=== PATIENT | female | born 1980 | race African-American/Black ===

== ENCOUNTER 2018-05-23 08:43 | Emergency (ER) | payer OTHER, SELFPAY ==
[~2018-05-23] VITALS: Ht 147.3 cm; Wt 63.6 kg
[~2018-05-23 08:43] MED LIST: NOCURR
[2018-05-23 09:46] LABS: APPEARANCE,URINE CLOUDY (CLEAR); BILIRUBIN,URINE NEGATIVE (NEGATIVE); GLUCOSE, URINE (UA) 100 mg/dL (NEGATIVE); KETONES,URINE NEGATIVE (NEGATIVE); LEUKOCYTE ESTERASE ,URINE TRACE (NEGATIVE); NITRATE,URINE NEGATIVE (NEGATIVE); OCCULT BLOOD,URINE NEGATIVE (NEGATIVE); PH,URINE 5.5 (5.0-8.0); PROTEIN,URINE SEE CONFIRM (NEGATIVE); UROBILINOGEN,URINE 0.2 mg/dL (<=1.0)
[2018-05-23 09:50] LABS: AMPHET/METH SCREEN,URINE NEGATIVE (NEGATIVE); BARBITURATE SCREEN, URINE NEGATIVE (NEGATIVE); BENZODIAZEPINES SCREEN,URINE NEGATIVE (NEGATIVE); CANNABINOID SCREEN,URINE NEGATIVE (NEGATIVE); COCAINE SCREEN,URINE NEGATIVE (NEGATIVE); METHADONE SCREEN, URINE NEGATIVE (NEGATIVE); OPIATE SCREEN,URINE NEGATIVE (NEGATIVE)
[2018-05-23 09:51] LABS: PHENCYCLIDINE SCREEN,URINE NEGATIVE (NEGATIVE)
[2018-05-23 10:07] LABS: BACTERIA,URINE Moderate /HPF (None Seen); RBC,URINE None Seen /HPF (0-2); SQUAMOUS EPITHELIAL CELL,UR Many /LPF (None Seen); SULFOSALICYLIC ACID,URINE 1+ (Negative); WBC,URINE 0-2 /HPF (0-5)
[2018-05-23 10:14] LABS: BASOPHILS % (AUTO) 0.8 % (0.0-2.0); EOSINOPHILS % (AUTO) 9.2 % (1.0-6.0); HEMATOCRIT 36.9 % (36-46); HEMOGLOBIN 11.6 g/dL (12.0-16.0); LYMPHOCYTES # (AUTO) 2.1 K/uL (1.0-4.8); LYMPHOCYTES % (AUTO) 34.4 % (22.0-44.0); MEAN CORPUSCULAR HEMOGLOBIN 27.3 pg (26.0-34.0); MEAN CORPUSCULAR HGB CONC 31.4 G/dL (31.0-37.0); MEAN CORPUSCULAR VOLUME 87 fL (80-100); MONOCYTES # (AUTO) 0.4 K/uL (0.1-1.0); MONOCYTES % (AUTO) 7.1 % (2.0-9.0); NEUTROPHILS % (AUTO) 48.5 % (40.0-70.0); PLATELET COUNT (AUTO) 351 K/uL (150-450); RED BLOOD CELL COUNT(AUTO) 4.25 MIL/uL (4.00-5.20); RED CELL DISTRIBUTION WIDTH 16.3 % (11.5-14.5)
[2018-05-23] MEDS ORDERED: PROP20TA7 PO (10:19)
[2018-05-23] MEDS ORDERED: CLON1PAT4 PO (10:19)
[2018-05-23 10:23] LABS: ANION GAP 10 mmol/L (8-16); CARBON DIOXIDE 21 mmol/L (22-29); CHLORIDE 104 mmol/L (98-107); CREATININE 0.73 mg/dL (0.60-1.30); GLOMERULAR FILTR. RATE CALC > 60 mL/min (>60); GLUCOSE,RANDOM 129 mg/dL (70-110); POTASSIUM 3.9 mmol/L (3.5-5.1); SODIUM SERUM 135 mmol/L (136-145); UREA NITROGEN, BLOOD 7 mg/dL (7-18)
[2018-05-23 10:34] LABS: ALANINE AMINOTRANSFERASE 18 U/L (12-78); ALBUMIN 3.7 g/dL (3.4-5.0); ALKALINE PHOSPHATASE 93 U/L (46-116); ASPARTATE AMINOTRANSFERASE 20 U/L (15-37); BILIRUBIN,TOTAL 0.3 mg/dL (0.1-1.0); HCG,QUANTITATIVE < 1 mIU/mL (0-6); LIPASE 222 U/L (73-393)
[2018-05-23 14:23] VITALS: BP 122/69
== END 2018-05-23 14:28 | disposition home or self-care (01) ==
LOC: EMS 08:44
DX: R55 Syncope and collapse (principal); R53.1 Weakness; I10 Essential (primary) hypertension; E11.9 Type 2 diabetes mellitus without complications; Z88.5 Allergy status to narcotic agent; Z88.6 Allergy status to analgesic agent; Z79.899 Other long term (current) drug therapy
CPT/HCPCS: 70450; 87086; 93005

== ENCOUNTER 2018-09-20 02:12 | Emergency (ER) | payer OTHER ==
[~2018-09-20] VITALS: Ht 147.3 cm; Wt 63.6 kg
[~2018-09-20 02:12] MED LIST changes: +CLON1PAT4 PO; +PROP20TA7 PO
[2018-09-20] MEDS ORDERED: LAMO25 PO (02:25)
[2018-09-20] MEDS ORDERED: GABA-529 PO (02:25)
[2018-09-20 02:29] LABS: GLUCOSE,POINT OF CARE 183 MG/DL (70-110)
[2018-09-20 03:18] LABS: BASOPHILS % (AUTO) 1.8 % (0.0-2.0); EOSINOPHILS % (AUTO) 4.2 % (1.0-6.0); HEMATOCRIT 32.7 % (36-46); HEMOGLOBIN 10.3 g/dL (12.0-16.0); LYMPHOCYTES # (AUTO) 3.7 K/uL (1.0-4.8); LYMPHOCYTES % (AUTO) 47.4 % (22.0-44.0); MEAN CORPUSCULAR HEMOGLOBIN 24.3 pg (26.0-34.0); MEAN CORPUSCULAR HGB CONC 31.4 G/dL (31.0-37.0); MEAN CORPUSCULAR VOLUME 77 fL (80-100); MONOCYTES # (AUTO) 0.8 K/uL (0.1-1.0); MONOCYTES % (AUTO) 10.8 % (2.0-9.0); NEUTROPHILS # (AUTO) 2.8 K/uL (1.8-7.7); NEUTROPHILS % (AUTO) 35.8 % (40.0-70.0); PLATELET COUNT (AUTO) 447 K/uL (150-450); RED BLOOD CELL COUNT(AUTO) 4.22 MIL/uL (4.00-5.20); RED CELL DISTRIBUTION WIDTH 20.1 % (11.5-14.5)
[2018-09-20 03:29] LABS: ANION GAP 11 mmol/L (8-16); CALCIUM, TOTAL 9.2 mg/dL (8.8-10.5); CARBON DIOXIDE 24 mmol/L (22-29); CHLORIDE 105 mmol/L (98-107); CREATININE 0.94 mg/dL (0.60-1.30); GLOMERULAR FILTR. RATE CALC > 60 mL/min (>60); GLUCOSE,RANDOM 124 mg/dL (70-110); POTASSIUM 3.8 mmol/L (3.5-5.1); SODIUM SERUM 140 mmol/L (136-145); UREA NITROGEN, BLOOD 12 mg/dL (7-18)
[2018-09-20 03:49] LABS: ALANINE AMINOTRANSFERASE 16 U/L (12-78); ALBUMIN 3.6 g/dL (3.4-5.0); ALKALINE PHOSPHATASE 84 U/L (46-116); ASPARTATE AMINOTRANSFERASE 20 U/L (15-37); BILIRUBIN,TOTAL 0.1 mg/dL (0.1-1.0); HCG,QUANTITATIVE < 1 mIU/mL (0-6); THYROID STIMULATING HORMONE 1.55 uIU/mL (0.36-3.74); TOTAL PROTEIN, SERUM 7.9 g/dL (6.4-8.2)
[2018-09-20] MEDS ORDERED: KETOROLAC TROMETHAMINE 60 MG/2 ML VIAL IM ONE (04:30)
[2018-09-20 05:31] VITALS: BP 128/86
== END 2018-09-20 05:49 | disposition home or self-care (01) ==
LOC: EMS 02:17
DX: R55 Syncope and collapse (principal); E11.9 Type 2 diabetes mellitus without complications; I10 Essential (primary) hypertension; Z88.5 Allergy status to narcotic agent; Z88.8 Allergy status to other drugs, medicaments and biological substances; Z79.899 Other long term (current) drug therapy
CPT/HCPCS: 36415; 70450; 73030; 80053; 82962; 84443; 84702; 85025; 93005; 96372; 99284; J1885

== ENCOUNTER 2019-02-23 21:41 | Emergency (ER) | payer OTHER ==
[~2019-02-23] VITALS: Ht 147.3 cm; Wt 63.6 kg
[~2019-02-23 21:41] MED LIST changes: +CLON.2 PO; -CLON1PAT4 PO; -NOCURR
[2019-02-24] MEDS ORDERED: IBUPROFEN 600 MG TABLET PO ONE
[2019-02-24 00:08] VITALS: BP 168/102
== END 2019-02-24 00:14 | disposition home or self-care (01) ==
LOC: EMS 21:42
DX: S43.101A Unspecified dislocation of right acromioclavicular joint, initial encounter (principal); F41.9 Anxiety disorder, unspecified; F32.9 Major depressive disorder, single episode, unspecified; E11.9 Type 2 diabetes mellitus without complications; I10 Essential (primary) hypertension; Z88.6 Allergy status to analgesic agent; Z88.5 Allergy status to narcotic agent; W01.0XXA Fall on same level from slipping, tripping and stumbling without subsequent striking against object, initial encounter; Y93.89 Activity, other specified; Y92.89 Other specified places as the place of occurrence of the external cause; Y99.8 Other external cause status
CPT/HCPCS: 29105; 93005

== ENCOUNTER 2020-07-08 12:09 | Emergency (ER) | payer MEDICAID, OTHER ==
[~2020-07-08] VITALS: Ht 147.3 cm; Wt 59.1 kg
[~2020-07-08 12:09] MED LIST changes: -CLON.2 PO; +CLON0.2T2 PO
[2020-07-08] MEDS ORDERED: LAMO100 PO (12:24)
[2020-07-08] MEDS ORDERED: CLON0.3T PO (12:24)
[2020-07-08] MEDS ORDERED: ZOLP10TA8 PO (12:24)
[2020-07-08] MEDS ORDERED: PROP40TA7 PO (12:24)
[2020-07-08] MEDS ORDERED: CloNIDine HCL 0.2 MG TABLET PO ONE (14:00)
[2020-07-08 14:24] VITALS: BP 165/88
== END 2020-07-08 14:29 | disposition home or self-care (01) ==
LOC: EMS 12:10
DX: I10 Essential (primary) hypertension (principal); F41.9 Anxiety disorder, unspecified; F32.9 Major depressive disorder, single episode, unspecified; E11.9 Type 2 diabetes mellitus without complications; Z76.0 Encounter for issue of repeat prescription; Z88.5 Allergy status to narcotic agent
CPT/HCPCS: 99281; Z7502; Z7610

== ENCOUNTER 2021-04-12 14:49 | Inpatient (IN) | payer MEDICAID, OTHER ==
[~2021-04-12] VITALS: Ht 147.3 cm; Wt 66.7 kg
[~2021-04-12 14:49] MED LIST changes: -CLON0.2T2 PO; +CLON0.3T PO; +LAMO100 PO; -PROP20TA7 PO; +PROP40TA7 PO; +ZOLP10TA8 PO
[2021-04-12] MEDS ORDERED: IBUPROFEN 600 MG TABLET PO ONE (16:00)
[2021-04-12 19:27] LABS: AMPHET/METH SCREEN,URINE NEGATIVE (NEGATIVE); BARBITURATE SCREEN, URINE NEGATIVE (NEGATIVE); BENZODIAZEPINES SCREEN,URINE NEGATIVE (NEGATIVE); CANNABINOID SCREEN,URINE NEGATIVE (NEGATIVE); COCAINE SCREEN,URINE NEGATIVE (NEGATIVE); METHADONE SCREEN, URINE NEGATIVE (NEGATIVE); OPIATE SCREEN,URINE NEGATIVE (NEGATIVE)
[2021-04-12 19:28] LABS: PHENCYCLIDINE SCREEN,URINE NEGATIVE (NEGATIVE)
[2021-04-12 19:29] LABS: BASOPHILS % (AUTO) 0.6 % (0.0-2.0); EOSINOPHILS % (AUTO) 2.4 % (1.0-6.0); HEMATOCRIT 32.8 % (36-46); HEMOGLOBIN 10.6 g/dL (12.0-16.0); LYMPHOCYTES # (AUTO) 1.6 K/uL (1.0-4.8); LYMPHOCYTES % (AUTO) 37.6 % (22.0-44.0); MEAN CORPUSCULAR HEMOGLOBIN 25.7 pg (26.0-34.0); MEAN CORPUSCULAR HGB CONC 32.3 G/dL (31.0-37.0); MEAN CORPUSCULAR VOLUME 80 fL (80-100); MONOCYTES # (AUTO) 0.3 K/uL (0.1-1.0); MONOCYTES % (AUTO) 6.9 % (2.0-9.0); NEUTROPHILS # (AUTO) 2.2 K/uL (1.8-7.7); NEUTROPHILS % (AUTO) 52.5 % (40.0-70.0); PLATELET COUNT (AUTO) 416 K/uL (150-450); RED BLOOD CELL COUNT(AUTO) 4.11 MIL/uL (4.00-5.20)
[2021-04-12 19:43] LABS: INR 1.1 (0.9-1.1); PROTHROMBIN TIME 11.3 SEC (9.4-11.6)
[2021-04-12 19:56] LABS: ANION GAP 7 mmol/L (8-16); CALCIUM, TOTAL 9.3 mg/dL (8.8-10.5); CARBON DIOXIDE 29 mmol/L (22-29); CHLORIDE 102 mmol/L (98-107); CREATININE 1.03 mg/dL (0.60-1.30); GLOMERULAR FILTR. RATE CALC > 60 mL/min (>60); GLUCOSE,RANDOM 189 mg/dL (70-110); POTASSIUM 3.8 mmol/L (3.5-5.1); SODIUM SERUM 138 mmol/L (136-145); UREA NITROGEN, BLOOD 8 mg/dL (7-18)
[2021-04-12 20:08] LABS: ALANINE AMINOTRANSFERASE 14 U/L (12-78); ALBUMIN 3.8 g/dL (3.4-5.0); ALKALINE PHOSPHATASE 89 U/L (46-116); ASPARTATE AMINOTRANSFERASE 15 U/L (15-37); BILIRUBIN,TOTAL 0.2 mg/dL (0.1-1.0); HCG,QUANTITATIVE < 1 mIU/mL (0-6); TOTAL PROTEIN, SERUM 7.8 g/dL (6.4-8.2)
[2021-04-12] MEDS ORDERED: HydrALAZINE HCL 20 MG/ML VIAL IVP ONE (21:45)
[2021-04-12] MEDS ORDERED: HydrALAZINE HCL 20 MG/ML VIAL IVP PRN (22:45)
[2021-04-12] MEDS ORDERED: BISACODYL 10 MG RECTAL RECTAL SUPPOSITORY PR PRN (22:45)
[2021-04-12] MEDS ORDERED: ACETAMINOPHEN 325 MG TABLET PO PRN (22:45)
[2021-04-12] MEDS ORDERED: MAGNESIUM HYDROXIDE SUSPENSION 30 ML UDCUP PO PRN (22:45)
[2021-04-12] MEDS ORDERED: ZOLPIDEM TARTRATE 5 MG TABLET PO PRN (22:45)
[2021-04-12] MEDS ORDERED: ONDANSETRON HCL 4 MG/2 ML VIAL IVP PRN (22:45)
[2021-04-12] MEDS ORDERED: PB/HYOSCY/ATR/SCOP/LIDO/MAALOX 55 ML BOTTLE ONE (23:54)
[2021-04-13] VITALS (8 sets, daily range): BP systolic 101–189; BP diastolic 56–100
[2021-04-13] MEDS: HYDROCODONE/ACETAMINOPHEN 5-325 MG TABLET PO PRN ×5 (00:20→23:40)
[2021-04-13 00:28] LABS: COVID AG,FIA SOURCE NASOPHARYNGEAL
[2021-04-13] MEDS: HEPARIN SODIUM,PORCINE 5,000 UNITS/ML VIAL SQ SCH ×4 (01:39→23:29)
[2021-04-13 05:10] LABS: BASOPHILS % (AUTO) 0.5 % (0.0-2.0); EOSINOPHILS % (AUTO) 2.6 % (1.0-6.0); HEMATOCRIT 36.4 % (36-46); HEMOGLOBIN 11.5 g/dL (12.0-16.0); LYMPHOCYTES # (AUTO) 2.1 K/uL (1.0-4.8); LYMPHOCYTES % (AUTO) 47.5 % (22.0-44.0); MEAN CORPUSCULAR HEMOGLOBIN 25.8 pg (26.0-34.0); MEAN CORPUSCULAR HGB CONC 31.6 G/dL (31.0-37.0); MEAN CORPUSCULAR VOLUME 82 fL (80-100); MONOCYTES # (AUTO) 0.5 K/uL (0.1-1.0); MONOCYTES % (AUTO) 10.7 % (2.0-9.0); NEUTROPHILS # (AUTO) 1.7 K/uL (1.8-7.7); NEUTROPHILS % (AUTO) 38.7 % (40.0-70.0); PLATELET COUNT (AUTO) 356 K/uL (150-450); RED BLOOD CELL COUNT(AUTO) 4.44 MIL/uL (4.00-5.20); RED CELL DISTRIBUTION WIDTH 17.8 % (11.5-14.5)
[2021-04-13 05:23] LABS: ANION GAP 12 mmol/L (8-16); CALCIUM, TOTAL 9.4 mg/dL (8.8-10.5); CARBON DIOXIDE 25 mmol/L (22-29); CHLORIDE 104 mmol/L (98-107); CREATININE 1.08 mg/dL (0.60-1.30); GLOMERULAR FILTR. RATE CALC > 60 mL/min (>60); GLUCOSE,RANDOM 150 mg/dL (70-110); POTASSIUM 4.1 mmol/L (3.5-5.1); SODIUM SERUM 141 mmol/L (136-145); UREA NITROGEN, BLOOD 8 mg/dL (7-18)
[2021-04-13 07:01] LABS: GLUCOMETER DEV NAME(LOC) ERT.5; GLUCOSE,POINT OF CARE 199 MG/DL (70-110)
[2021-04-13] MEDS: DOCUSATE SODIUM 100 MG CAPSULE PO SCH ×2 (08:09→20:56)
[2021-04-13] MEDS: PANTOPRAZOLE SODIUM 40 MG DR TABLET PO SCH (08:10)
[2021-04-13] MEDS: LamoTRIgine 100 MG TABLET PO SCH ×3 (10:48→20:57)
[2021-04-13] MEDS ORDERED: INFLUENZA VIRUS VACCINE QVS 2021-22 (6MO+)/PF 60 MCG/0.5 ML SYRINGE IM. ONE (14:45)
[2021-04-13] MEDS: CloNIDine HCL 0.2 MG TABLET PO SCH ×2 (16:00→20:58)
[2021-04-13] MEDS: HydrALAZINE HCL 25 MG TABLET PO SCH ×3 (20:59→23:34)
[2021-04-13] MEDS ORDERED: ZOLPIDEM TARTRATE 10 MG TABLET PO SCH (21:00)
[2021-04-14 05:51] VITALS: BP 149/75
[2021-04-14 06:07] LABS: BASOPHILS % (AUTO) 0.6 % (0.0-2.0); EOSINOPHILS % (AUTO) 3.3 % (1.0-6.0); HEMATOCRIT 32.7 % (36-46); HEMOGLOBIN 10.7 g/dL (12.0-16.0); LYMPHOCYTES # (AUTO) 1.3 K/uL (1.0-4.8); LYMPHOCYTES % (AUTO) 36.1 % (22.0-44.0); MEAN CORPUSCULAR HEMOGLOBIN 26.3 pg (26.0-34.0); MEAN CORPUSCULAR HGB CONC 32.7 G/dL (31.0-37.0); MEAN CORPUSCULAR VOLUME 80 fL (80-100); MONOCYTES # (AUTO) 0.3 K/uL (0.1-1.0); MONOCYTES % (AUTO) 7.4 % (2.0-9.0); NEUTROPHILS % (AUTO) 52.6 % (40.0-70.0); PLATELET COUNT (AUTO) 439 K/uL (150-450); RED BLOOD CELL COUNT(AUTO) 4.07 MIL/uL (4.00-5.20); RED CELL DISTRIBUTION WIDTH 17.8 % (11.5-14.5)
[2021-04-14 06:19] LABS: ANION GAP 7 mmol/L (8-16); CALCIUM, TOTAL 9.1 mg/dL (8.8-10.5); CARBON DIOXIDE 28 mmol/L (22-29); CHLORIDE 102 mmol/L (98-107); CREATININE 1.01 mg/dL (0.60-1.30); GLOMERULAR FILTR. RATE CALC > 60 mL/min (>60); GLUCOSE,RANDOM 199 mg/dL (70-110); POTASSIUM 3.7 mmol/L (3.5-5.1); SODIUM SERUM 137 mmol/L (136-145); UREA NITROGEN, BLOOD 8 mg/dL (7-18)
[2021-04-14 08:18] VITALS: BP 149/85
[2021-04-14] MEDS: PANTOPRAZOLE SODIUM 40 MG DR TABLET PO SCH (08:21)
[2021-04-14] MEDS: CloNIDine HCL 0.2 MG TABLET PO SCH (08:21)
[2021-04-14] MEDS: DOCUSATE SODIUM 100 MG CAPSULE PO SCH (08:21)
[2021-04-14] MEDS: LamoTRIgine 100 MG TABLET PO SCH (08:21)
[2021-04-14] MEDS: HEPARIN SODIUM,PORCINE 5,000 UNITS/ML VIAL SQ SCH (08:22)
[2021-04-14] MEDS ORDERED: ONDANSETRON HCL 4 MG TABLET PO PRN (09:00)
[2021-04-14] MEDS ORDERED: ONDANSETRON HCL 4 MG/2 ML VIAL PO PRN (10:45)
[2021-04-14 11:56] VITALS: BP 163/97
[2021-04-14] MEDS: HydrALAZINE HCL 25 MG TABLET PO SCH (11:58)
[2021-04-14] MEDS ORDERED: CLON0.2T PO (13:18)
[2021-04-14] MEDS ORDERED: HYDR10TA31 PO (13:19)
== END 2021-04-14 12:50 | disposition left against medical advice (07) | DRG 384 ==
LOC: EMS 14:49 → 5S 04-13 06:02
PROVIDERS: ADMIT Internal Medicine; ATTEND Internal Medicine
DX: S00.03XA Contusion of scalp, initial encounter (principal); S09.90XA Unspecified injury of head, initial encounter; E11.9 Type 2 diabetes mellitus without complications; Z53.29 Procedure and treatment not carried out because of patient's decision for other reasons; Z20.822 Contact with and (suspected) exposure to COVID-19; F41.9 Anxiety disorder, unspecified; W01.0XXA Fall on same level from slipping, tripping and stumbling without subsequent striking against object, initial encounter; R53.81 Other malaise; S19.9XXA Unspecified injury of neck, initial encounter; I10 Essential (primary) hypertension; Z82.49 Family history of ischemic heart disease and other diseases of the circulatory system; Z83.3 Family history of diabetes mellitus; Z88.8 Allergy status to other drugs, medicaments and biological substances; Y93.89 Activity, other specified; Y92.89 Other specified places as the place of occurrence of the external cause; Y99.8 Other external cause status
CPT/HCPCS: 70450; 71046; 72072; 80048; 80053; 82962; 84702; 85025; 85610; 85730; 93005; 97162; 97530; 99285; G0480; J0360; J1644; J2405; 36415-L1; 36415-TC